=== PATIENT | female | born 1945 | race Caucasian/White ===

== ENCOUNTER 2019-12-28 10:57 | Outpatient (CLI) | payer MEDICARE, MEDICAID, SELFPAY ==
--- NOTE | 2019-12-28 11:09 | XR_ITS ---
WS: [id number] Lumbar spine, 3 views, 12/28/2019 Clinical Data: SACRAL BACK PAIN Comparison: None. Findings: No compression fractures or subluxation is seen. The transverse processes and SI joints are normal. There is a dextrorotoscoliosis. Degenerative disc disease at all disc levels from L1-L2 through L5-S1 is seen. There is a 0.5 cm subluxation of L4 on L5. There are clips in the right upper quadrant from a cholecystectomy. There is a large amount of fecal material throughout the colon. XR/XR lumbar spine 2-3V* [id number] Impression: 1. Dextrorotoscoliosis with multilevel degenerative disc disease. 2. 0.5 cm subluxation of L4 on L5.
== END 2019-12-28 10:58 | disposition home or self-care (01) ==
LOC: RADWPI 11:04
PROVIDERS: Family Provider Internal Medicine; PCP Internal Medicine; Visit Provider Nurse Practitioner Family
DX: M51.36 Other intervertebral disc degeneration, lumbar region (principal); M79.651 Pain in right thigh; M50.90 Cervical disc disorder, unspecified, unspecified cervical region; M25.561 Pain in right knee; Z79.891 Long term (current) use of opiate analgesic
CPT/HCPCS: 72100; 99214

== ENCOUNTER 2020-01-28 12:55 | Outpatient (CLI) | payer MEDICARE, MEDICAID, SELFPAY ==
--- NOTE | 2020-01-28 12:59 | XR_ITS ---
WS: [id number] KNEE RIGHT TECHNIQUE: 3 views of the right knee CLINICAL INFORMATION: WORSENING RIGHT KNEE PAIN COMPARISON: None. FINDINGS: Normal anatomic alignment. No acute fractures. Mild to moderate degenerative narrowing involving the medial lateral joint compartments. Chondrocalcinosis. Hypertrophic changes along the joint line. Hype rtrophic patella. IMPRESSION: Mild to moderate tricompartmental arthritis
== END 2020-01-28 12:56 | disposition home or self-care (01) ==
LOC: RADWPI 12:58
PROVIDERS: Family Provider Internal Medicine; PCP Internal Medicine; Visit Provider Internal Medicine
DX: M17.11 Unilateral primary osteoarthritis, right knee (principal); M25.561 Pain in right knee
CPT/HCPCS: 73562

== ENCOUNTER → 2020-02-20 12:52 | Outpatient (BNVA) | payer MEDICARE, MEDICAID, SELFPAY | PROVIDERS: Family Provider Internal Medicine; PCP Internal Medicine; Visit Provider Anesthesiology | DX: Z76.89 Persons encountering health services in other specified circumstances (principal) ==

== ENCOUNTER 2020-04-22 10:08 | Outpatient (CLI) | payer MEDICARE, MEDICAID, SELFPAY ==
--- NOTE | 2020-04-22 10:17 | MM_ITS ---
WS: [id number] SCREENING DIGITAL MAMMOGRAM WITH CAD HISTORY: SCREENING COMPARISON: 03/08/2018, 01/24/2017 Bilateral CC and MLO views submitted. Computer aided detection analyzed. Breast composition: There are scattered areas of fibroglandular density. Increasing small cluster of calcifications in the anterior LEFT breast near 3:00. There may be a small associated soft tissue mas s. Vascular calcifications bilaterally. LEFT BREAST: Magnification views of suspicious calcification CC and MLO. True ML. MM/[place] [id number] IMPRESSION: BI-RADS: 0-Incomplete: Need additional imaging evaluation FOLLOW UP: Need Additional Imaging
== END 2020-04-22 10:09 | disposition home or self-care (01) ==
PROVIDERS: PCP Internal Medicine; Visit Provider Internal Medicine
DX: Z12.31 Encounter for screening mammogram for malignant neoplasm of breast (principal); R92.1 Mammographic calcification found on diagnostic imaging of breast
CPT/HCPCS: 77067

== ENCOUNTER → 2020-05-30 10:01 | Outpatient (BNVA) | payer MEDICARE, MEDICAID, SELFPAY | PROVIDERS: Family Provider Internal Medicine; PCP Internal Medicine; Visit Provider Anesthesiology | DX: M54.42 Lumbago with sciatica, left side (principal); M51.36 Other intervertebral disc degeneration, lumbar region; M54.9 Dorsalgia, unspecified; M50.90 Cervical disc disorder, unspecified, unspecified cervical region; Z79.891 Long term (current) use of opiate analgesic | CPT/HCPCS: 99214 ==

== ENCOUNTER → 2020-07-23 09:09 | Outpatient (BNVA) | payer MEDICARE, MEDICAID, SELFPAY | PROVIDERS: Family Provider Internal Medicine; PCP Internal Medicine; Visit Provider Anesthesiology | DX: M54.42 Lumbago with sciatica, left side (principal); M43.16 Spondylolisthesis, lumbar region; M51.36 Other intervertebral disc degeneration, lumbar region; M50.90 Cervical disc disorder, unspecified, unspecified cervical region; Z79.891 Long term (current) use of opiate analgesic | CPT/HCPCS: 99213; 99214 ==

== ENCOUNTER 2020-08-26 13:12 | Outpatient (CLI) | payer MEDICARE, MEDICAID, SELFPAY ==
--- NOTE | 2020-08-26 13:34 | MR_ITS ---
WS: [id number] MRI LUMBAR SPINE NONCONTRAST HISTORY: Low back pain. COMPARISON: 03/10/2017 TECHNIQUE: Sagittal and axial multisequence imaging is submitted. Multilevel disc bulging and osteophytosis throughout the mid to lower cervical spine with mild encroa chment upon the thecal sac. Increase in thoracic kyphosis. On one of the localizer images there is in creased soft tissue mass in the LEFT upper abdomen which need further evaluation. Severe rotoscoliosis with convexity to the RIGHT. L4 anterolisthesis is 6.8 mm. 3 mm retrolisthesis o f L2 and L3. There is a very small amount of marrow edema in the adjacent endplates at L4 and L5. No acute fractures. Severe multilevel degenerative disc space narrowing and desiccation. Most significant at L4-5. Conus terminates normally at L1-2 disc level. L1-L2: Diffuse osteophytic ridging and annular disc bulging. Small protrusion in the RIGHT foramen ca using mild narrowing. L2-L3: Diffuse osteophytic ridging and annular disc bulging. Marked ligamentum flavum and facet joint arthritis. Mild central and subarticular recess narrowing. L3-L4: Diffuse asymmetric disc bulging and osteophytic ridging. Facet joint arthropathy encroaches in to the thecal sac, greatest on the LEFT. Moderate central, LEFT subarticular recess and foraminal kelley nosis. L4-L5: Diffuse asymmetric annular disc bulging and osteophytic ridging. Thecal sac is being significa ntly deformed by the rotoscoliosis. Severe central, subarticular recess and foraminal stenosis. Compl ete effacement of fat in the LEFT foramen. L5-S1: Diffuse annular disc bulging and facet and ligamentum flavum hypertrophy. Moderate RIGHT and m ild LEFT foraminal stenosis. MR/MR lumbar spine wo con* [id number] IMPRESSION: 1. Severe RIGHT convex rotoscoliosis of the lumbar spine with moderate progres mleanie of stenosis and degenerative changes since 2017. 2. Severe central, subarticular recess and foraminal stenosis at L4-5. 3. Moderate central, LEFT subarticular recess and foraminal stenosis at L3-4. 4. Moderate RIGHT and mild LEFT foraminal stenosis at L5-S1. 5. Soft tissue mass in the LEFT upper abdomen. May be related to the spleen. R ecommend follow-up CT abdomen and pelvis with IV and oral contrast. 6. Severe degenerative disc disease at L4-5 with significant progression since the prior study. Reactive marrow edema in the vertebral endplates and a small amount of fluid along the disc and in the facet joints.
== END 2020-08-26 13:13 | disposition home or self-care (01) ==
LOC: RADWPI 13:15
PROVIDERS: PCP Internal Medicine; Visit Provider Internal Medicine
DX: M48.061 Spinal stenosis, lumbar region without neurogenic claudication (principal); M48.07 Spinal stenosis, lumbosacral region; R19.02 Left upper quadrant abdominal swelling, mass and lump; M51.36 Other intervertebral disc degeneration, lumbar region
CPT/HCPCS: 72148

== ENCOUNTER 2020-09-04 07:50 | Outpatient (CLI) | payer MEDICARE, MEDICAID, SELFPAY ==
--- NOTE | 2020-09-04 | CT_ITS ---
WS: [id number] CT ABDOMEN PELVIS TECHNIQUE: Noncontrast CT of the abdomen and pelvis with coronal and sagittal reformatted images. CLINICAL INFORMATION: SOFT TISSUE MASS COMPARISON: CT and MRI August 26, 2020 DLP: 944.[address] scans at [facility] use at least one of these dose optimization techniques: automat ed exposure control; mA and/or kV adjustment per patient size (includes targeted exams where dose is matched to clinical indication); or iterative reconstruction. FINDINGS: Normal liver. Cholecystectomy. Lobulated spleen the left upper quadrant with dystrophic calcification corresponds t o the mass described on the lumbar spine MRI. This has a benign appearance. Normal GE junction. Moder ate emphysematous changes in the lung bases. Subsegmental atelectasis right lower lobe. Hazy infiltra keiry in the left greater than right lung base. Noncontrast pancreas appears normal with pancreatic atrophy. Normal caliber abdominal aorta. Aortic c alcification. Malrotation right kidney. Prominent extrarenal pelvises bilaterally. No hydronephrosis. Aortic calcification. Scattered stool in normal caliber colon. No evidence of small or large bowel o bstruction. No free fluid in the pelvis. No periaortic lymphadenopathy. No pelvic lymphadenopathy. Lumbar scoliosis. Grade 1 anterolisthesis L 4 on L5 measuring 7 mm. Disc space narrowing with vacuum disc phenomenon throughout the lumbar spine. Advanced lumbar scoliosis. IMPRESSION: 1. Lobulated partially calcified spleen left upper quadrant corresponds to the mass seen on the MRI. This has a benign appearance. 2. Prior cholecystectomy. 3. Malrotation right kidney. No hydronephrosis in either kidney. 4. Advanced lumbar scoliosis with multilevel degenerative disc disease. 5. Hazy infiltrates in the left greater than right lung base. Recommend correlation for pneumonitis.
[2020-09-04] MEDS: iohexol 300 mg/mL 50 mL Btl PO (09:40)
== END 2020-09-04 07:51 | disposition home or self-care (01) ==
LOC: RADWPI 07:55
PROVIDERS: PCP Internal Medicine; Visit Provider Internal Medicine
DX: M79.9 Soft tissue disorder, unspecified (principal); D73.89 Other diseases of spleen; Z90.49 Acquired absence of other specified parts of digestive tract; Q63.2 Ectopic kidney; M41.86 Other forms of scoliosis, lumbar region; M51.36 Other intervertebral disc degeneration, lumbar region; R91.8 Other nonspecific abnormal finding of lung field
CPT/HCPCS: 74176; Q9967

== ENCOUNTER 2020-09-08 09:41 | Outpatient (CLI) | payer MEDICARE, MEDICAID, SELFPAY ==
--- NOTE | 2020-09-08 09:47 | MM_ITS ---
WS: [id number] LEFT DIGITAL MAMMOGRAM WITH CAD HISTORY: ABNORMAL MAMMOGRAM LT BREAST COMPARISON: 04/22/2020, 03/08/2018 Technique: CC, MLO and ML views. Magnification views LEFT CC and MLO. Breast composition: There are scattered areas of fibroglandular density. Small cluster of calcificat ions is unchanged since 04/22/2020. Probably benign calcifications. As these are new since 03/08/2018 co ntinued follow-up recommended. MM/[place] [id number] IMPRESSION: BI-RADS: 3-Probably Benign FOLLOW UP: 6 Month Follow-up Magnification views of the LEFT breast calcifications recommended in 6 months f or continued follow-up.
--- NOTE | 2020-09-08 10:33 | CT_ITS ---
WS: [id number] LDCT LUNG CANCER SCREENING TECHNIQUE: Noncontrast CT of the chest with coronal and sagittal reformatted images. CLINICAL INFORMATION: INITIAL SCREENING COMPARISON: 4 7,016 DLP: 69.18 mGy.cm DIvol: 1.[address] scans at [facility] use at least one of these dose optimization techniques: automat ed exposure control; mA and/or kV adjustment per patient size (includes targeted exams where dose is matched to clinical indication); or iterative reconstruction. FINDINGS: Sternotomy Mild chronic emphysematous changes. No acute pulmonary infiltrates. 9 mm groundglass opacity right up per lobe is unchanged since February 26, 2016. Subsegmental atelectasis in the lingula and left lower lo be. Small noncalcified nodule right upper lobe laterally measuring 4 mm. A few calcified granulomas. Stab le ectatic ascending thoracic aorta measuring 4.0 cm unchanged. Aortic calcification. Coronary calcif ication. Calcified mediastinal and right hilar lymph nodes. Small fat-containing epigastric/morgagni hernia. CT/CT lung screening [id number] IMPRESSION: LUNG-RADS: 2-Benign Appearance or Behavior FOLLOW UP: 12 Month: Continue annual screening with LDCT
== END 2020-09-08 09:42 | disposition home or self-care (01) ==
LOC: RADSHAW 09:44
PROVIDERS: PCP Internal Medicine; Visit Provider Internal Medicine
DX: R92.8 Other abnormal and inconclusive findings on diagnostic imaging of breast (principal); R92.1 Mammographic calcification found on diagnostic imaging of breast; Z12.2 Encounter for screening for malignant neoplasm of respiratory organs; F17.200 Nicotine dependence, unspecified, uncomplicated
CPT/HCPCS: 77065; G0297

== ENCOUNTER → 2020-09-17 09:12 | Outpatient (BNVA) | payer MEDICARE, MEDICAID, SELFPAY | PROVIDERS: Family Provider Internal Medicine; PCP Internal Medicine; Visit Provider Anesthesiology | DX: M43.16 Spondylolisthesis, lumbar region (principal); M51.36 Other intervertebral disc degeneration, lumbar region; M50.90 Cervical disc disorder, unspecified, unspecified cervical region; M54.9 Dorsalgia, unspecified; Z79.891 Long term (current) use of opiate analgesic | CPT/HCPCS: 99213; 99214 ==

== ENCOUNTER → 2020-11-25 13:48 | Outpatient (BNVA) | payer MEDICARE, MEDICAID, SELFPAY | PROVIDERS: Family Provider Internal Medicine; PCP Internal Medicine; Visit Provider Anesthesiology | DX: M54.42 Lumbago with sciatica, left side (principal); M51.36 Other intervertebral disc degeneration, lumbar region; M43.16 Spondylolisthesis, lumbar region; M54.9 Dorsalgia, unspecified; Z79.891 Long term (current) use of opiate analgesic | CPT/HCPCS: 99213 ==

== ENCOUNTER → 2020-12-02 13:31 | Outpatient (BNVA) | payer MEDICARE, MEDICAID, SELFPAY | PROVIDERS: Family Provider Internal Medicine; PCP Internal Medicine; Visit Provider Internal Medicine Critical Care Medicine | DX: J96.11 Chronic respiratory failure with hypoxia (principal); J96.12 Chronic respiratory failure with hypercapnia | CPT/HCPCS: 87635 ==

== ENCOUNTER → 2021-01-20 13:54 | Outpatient (BNVA) | payer MEDICARE, MEDICAID, SELFPAY | PROVIDERS: Family Provider Nurse Practitioner Family; PCP Internal Medicine; Visit Provider Nurse Practitioner | DX: M43.16 Spondylolisthesis, lumbar region (principal); M51.36 Other intervertebral disc degeneration, lumbar region; M54.9 Dorsalgia, unspecified; M50.90 Cervical disc disorder, unspecified, unspecified cervical region; Z79.891 Long term (current) use of opiate analgesic | CPT/HCPCS: 99213 ==

== ENCOUNTER → 2021-02-17 09:32 | Outpatient (BNVA) | payer MEDICARE, MEDICAID, SELFPAY | PROVIDERS: PCP Internal Medicine; Visit Provider Nurse Practitioner | DX: M79.652 Pain in left thigh (principal); M43.16 Spondylolisthesis, lumbar region; M50.90 Cervical disc disorder, unspecified, unspecified cervical region; M51.36 Other intervertebral disc degeneration, lumbar region; M70.62 Trochanteric bursitis, left hip; Z79.891 Long term (current) use of opiate analgesic; Y93.9 Activity, unspecified | CPT/HCPCS: 99213 ==

== ENCOUNTER 2021-02-23 12:44 | Outpatient (CLI) | payer MEDICARE, MEDICAID, SELFPAY ==
--- NOTE | 2021-02-23 12:53 | XR_ITS ---
WS: [id number] DEXA (DUAL ENERGY X-RAY ABSORPTIOMETRY) Bone mineral density was performed using a Ecrio machine. HISTORY: STATUS, ASYMPTOMATIC POSTMENOPAUSAL COMPARISON: 07/22/2015 Lumbar spine BMD (L1-L4): 1.116 g/cm2 T score: -0.5 Z score: 1.6 Total hip BMD: Left: 0.721 g/cm2. T score: -2.3 Z score: -0.4 Right: 0.670 g/cm2. T score: -2.7 Z score: -0.8 10 year probability of a major osteoporotic fracture is 18%. Compared to the prior study from 07/22/2015. Lumbar spine bone mineral density has decreased by 0.4%. Bilateral hips bone mineral density has decreased by 18.5%. XR/XR DEXA axial skeleton* [id number] IMPRESSION: OSTEOPOROSIS based upon the WHO classification for females. Significant decrease in bone mineral density within the hips since the prior st udy. Increased bone mineral density within the lumbar spine is most likely falsely e levated due to sclerosis.
== END 2021-02-23 12:45 | disposition home or self-care (01) ==
LOC: RADWPI 12:48
PROVIDERS: PCP Internal Medicine; Visit Provider Internal Medicine
DX: Z78.0 Asymptomatic menopausal state (principal); M81.0 Age-related osteoporosis without current pathological fracture
CPT/HCPCS: 77080

== ENCOUNTER → 2021-02-24 13:34 | Outpatient (BNVA) | payer MEDICARE, MEDICAID, SELFPAY | PROVIDERS: PCP Internal Medicine; Referring Provider Internal Medicine; Visit Provider Orthopaedic Surgery | DX: M54.9 Dorsalgia, unspecified (principal) | CPT/HCPCS: 72110 ==

== ENCOUNTER → 2021-03-27 08:39 | Outpatient (BNVA) | payer MEDICARE, MEDICAID, SELFPAY | PROVIDERS: PCP Internal Medicine; Visit Provider Orthopaedic Surgery | DX: Z20.822 Contact with and (suspected) exposure to COVID-19 (principal) | CPT/HCPCS: 87635 ==

== ENCOUNTER 2021-03-30 11:30 | Day surgery (SDC) | payer MEDICARE, MEDICAID, SELFPAY ==
[2021-03-30 11:12] VITALS: BMI 20.2
[2021-03-30 11:40] LABS: Basophils % 0.4 %; Eosinophils # 0.3 10^3/uL (0.0-0.8); Eosinophils % 5.1 %; Hematocrit 41.7 % (37.0-47.0); Hemoglobin 13.1 g/dL (11.5-15.3); Lymphocytes # 1.4 10^3/uL (0.8-4.8); Lymphocytes % 23.9 %; Mean Corpuscular HGB Conc 31.4 g/dL (30.0-36.0); Mean Corpuscular Hemoglobin 32.2 pg (28.0-34.0); Mean Corpuscular Volume 102.5 fL (81-99); Mean Platelet Volume 9.4 fL (7.4-10.4); Monocytes # 0.4 10^3/uL (0.2-0.9); Monocytes % 7.3 %; Neutrophils # 3.56 10^3/uL (1.8-7.7); Neutrophils % 63.1 %; Nucleated Red Blood Cells % 0 %; Platelet Count 163 10^3/cmm (130-400); Red Blood Count 4.07 10^6/uL (4.1-5.3); Red Cell Distribution Width 12.8 % (12.1-15.1); White Blood Count 5.6 10^3/uL (4.0-10.0)
--- NOTE | 2021-03-30 11:45 | P.ANESASSM_ITS ---
Pre-Anesthetic Assessment Pre-Anesthetic Assessment: Height/Weight: Height 1.6 m Weight 51.71 kg Preop Diagnosis: lumbar stenosis Proposed Procedure: Operation Date: 04/01/21 07:00 Proposed Procedures p Lumbar Spine Decompression L4/5 14159 M48.061(Not Applicable) - Santo Small DO Familial anesthetic complications: None Social: Social History: No alcohol and No tobacco Comment: former smoker and EtOH Exam: Pre-Anes Outpt Exam: alert, oriented x 3, clear to auscultation bilaterally and regular rate & rhythm Airway: Cervical ROM: WNL MP: 1 Dentition: Other (top plate) Pulmonary: Pulmonary: COPD (2 L NC prn during activity, steroids within last year) CV/HEM: Comments: S/P AVR approximately 10 years ago GI: GI: GERD Musc/skel: Musc/skel: Lower Back Pain Neuropsych: Neuropsych: Seizure (last one 2 years ago, occurs after stress) Anesthetic Plan: ASA status: 3 Anesthesia: General Risk of > 500 ml blood loss (7ml/kg in children): No PFSH Anesthesia PFSH: Medical History Cervical disc disease Cholecystectomy planned COPD (chronic obstructive pulmonary disease) Lumbar degenerative disc disease Surgical History H/O hernia repair H/O tubal ligation History of heart valve repair History of surgery on arm Family History Other Cancer Dementia Denies family history of Anesthesia complication Bleeding disorder Social History Smoking and tobacco status: former smoker Quit status (tobacco): has quit using tobacco Year quit tobacco: 2009 - 3PPD x 50 Years Second hand smoke exposure: Yes Smoking risk assessment/counseling performed?: No Alcohol intake: never Lives independently: Yes Household members: none Marital status: / Current occupational status: retired History of recent travel: No Current gender identity: Female Data Anesthesia CBC & Chem 7: 03/30/21 11:30 03/30/21 11:30 Other Labs: Laboratory Results - last 48 hr 03/30/21 11:30 WBC 5.6 RBC 4.07 L Hgb 13.1 Hct 41.7 MCV 102.5 H MCH 32.2 MCHC 31.4 RDW 12.8 Plt Count 163 MPV 9.4 Neut % (Auto) 63.1 Lymph % (Auto) 23.9 [place] % (Auto) 7.3 Eos % (Auto) 5.1 Baso % (Auto) 0.4 Neut # (Auto) 3.56 Lymph # (Auto) 1.4 [place] # (Auto) 0.4 Eos # (Auto) 0.3 Baso # (Auto) 0.0 Nucleated RBC % (auto) 0 Nucleated RBCs # 0.0 Cardiac Studies: No Data to Display
[2021-03-30 12:05] LABS: Alanine Aminotransferase 14 U/L (0-33); Albumin Level 4.1 g/dL (3.5-5.2); Alkaline Phosphatase 83 IU/L (35-105); Aspartate Amino Transferase 25 U/L (0-32); Blood Urea Nitrogen 10 mg/dL (8-23); Calcium 8.5 mg/dL (8.5-10.5); Carbon Dioxide 31 mmol/L (22-29); Chloride 101 mmol/L (98-107); Globulin 2.1 g/dL (1.3-4.6); Glucose 127 mg/dL (65-115); Osmolality Calculated 289 mOsm/kg (285-295); Sodium 139 mmol/L (136-145); Total Bilirubin 0.2 mg/dL (0.15-1.2); Total Protein 6.2 g/dL (6.6-8.7)
[2021-04-01 09:57] VITALS: BP 139/107; PULSE 96; RESP 16; TEMP 36.3; O2SAT 96
--- NOTE | 2021-04-01 10:14 | PC.NURSE ---
SURGERY CANCELLED. PATIENT CONSUMED A BOTTLE OF WATER, WITH HER LAST DRINK BEING AT 9:30. PATIENT TO RE-SCHEDULE
--- NOTE | 2021-04-01 12:03 | W.PM.OPSUD ---
Surgery/Procedure H&P Update DATE OF PROCEDURE: April 01, 2021 DATE H&P PERFORMED: 04/01/21 PREOP DIAGNOSIS: lumbar stenosis PLANNED PROCEDURE: Operation Date: 04/01/21 11:30 Proposed Procedures p Lumbar Spine Decompression L4/5 44194 M48.061(Not Applicable) - Santo Small DO
== END 2021-03-30 12:00 | disposition home or self-care (01) ==
LOC: OR 11-22 17:28
PROVIDERS: PCP Internal Medicine; Visit Provider Orthopaedic Surgery
DX: M48.061 Spinal stenosis, lumbar region without neurogenic claudication (principal); Z53.9 Procedure and treatment not carried out, unspecified reason; J44.9 Chronic obstructive pulmonary disease, unspecified; Z99.81 Dependence on supplemental oxygen; Z87.891 Personal history of nicotine dependence
CPT/HCPCS: 36415; 76000; 80048; 80053; 85025

== ENCOUNTER → 2021-04-21 10:24 | Outpatient (BNVA) | payer MEDICARE, MEDICAID, SELFPAY | PROVIDERS: PCP Internal Medicine; Visit Provider Orthopaedic Surgery | DX: Z20.822 Contact with and (suspected) exposure to COVID-19 (principal); Z01.818 Encounter for other preprocedural examination | CPT/HCPCS: 87635 ==

== ENCOUNTER → 2021-04-24 09:24 | Outpatient (BNVA) | payer MEDICARE, MEDICAID, SELFPAY | PROVIDERS: PCP Internal Medicine; Visit Provider Nurse Practitioner | DX: M48.062 Spinal stenosis, lumbar region with neurogenic claudication (principal); M51.36 Other intervertebral disc degeneration, lumbar region; M43.16 Spondylolisthesis, lumbar region; M50.90 Cervical disc disorder, unspecified, unspecified cervical region; Z79.891 Long term (current) use of opiate analgesic; Z87.891 Personal history of nicotine dependence | CPT/HCPCS: 99214 ==

== ENCOUNTER 2021-04-28 05:30 | Day surgery (SDC) | payer MEDICARE, MEDICAID, SELFPAY ==
[2021-04-27 16:01] VITALS: BMI 20.2
[2021-04-28] VITALS (9 sets, daily range): BP systolic 113–152; BP diastolic 64–87; PULSE 66–111; RESP 15–20; TEMP 36.2–36.4; O2SAT 94–100
--- NOTE | 2021-04-28 | SCC_ITS ---
Procedure: left L4/5 Laminectomy with partial facetectomies 47.9 seconds of fluoroscopic guidance, for a cumulative dose of 7.37 mGy, was provided to Dr. Small by the radiology department. C-arm images of the lumbar spine were saved for the patient's permanent record. SERAFIN
--- NOTE | 2021-04-28 | XR_ITS ---
WS: [id number] C-ARM RADIOGRAPHS LUMBAR SPINE; 4 IMAGES HISTORY: decompression COMPARISON: None available. Intraoperative lumbar decompression. XR/XR lumbar spine 2-3V* [id number] IMPRESSION: Imaging during intraoperative lumbar spine decompression.
[2021-04-28] MEDS: sodium chloride 0.9% 1,000 ML 30 ML IV (06:23)
--- NOTE | 2021-04-28 06:43 | W.PM.OPSUD ---
Surgery/Procedure H&P Update DATE OF PROCEDURE: April 28, 2021 DATE H&P PERFORMED: 04/16/21 H&P UPDATE INFORMATION: I have reviewed H&P completed within last 30 days, I have examined patient prior to procedure and No changes to prior documentation PREOP DIAGNOSIS: lumbar stenosis PLANNED PROCEDURE: Operation Date: 04/28/21 07:00 Proposed Procedures p L4/5 decomopression 56451 M48.061(Not Applicable) - Santo Small DO
--- NOTE | 2021-04-28 06:55 | P.ANESUD_ITS ---
Pre-Anesthetic Update Pre-Anesthetic Assessment: Date of Surgery/Procedure: 04/28/21 Preop Jaelyn gnosis: lumbar stenosis Proposed Procedure: Operation Date: 04/28/21 07:00 Proposed Procedures p L4/5 decomopression 72451 M48.061(Not Applicable) - Santo Small, DO Any changes to Pre-Anesthetic Assessment?: No Last Intake: Intake Last Liquid Date 04/27/21 Last Liquid Time 18:30 Last Solid Date 04/27/21 Last Solid Time 18:30 Vitals: Temperature Source Temporal Artery S can 04/28/21 05:59 Pulse Rate 102 H 04/28/21 05:59 Respiratory Rate 18 04/28/21 05:59 Blood Pressure 113/66 04/28/21 05:59 Blood Pressure Ayanna n 81 04/28/21 05:59 Pulse Oximetry 94 04/28/21 05:59 Oxygen Delivery Me thod 04/28/21 05:59 Exam: Pre-Anes Outpt Exam: alert, oriented x 3, clear to auscultation bilaterally and regular rate & rhythm Cardiac Studies: No Data to Display
[2021-04-28] MEDS: clindamycin 600 MG/50 ML PREMIX 100 MG IV (06:58)
--- NOTE | 2021-04-28 08:39 | PM.OP ---
Operative Report Date of procedure: April 28, 2021 Pre-op Diagnosis: lumbar stenosis Post-op diagnosis: same Procedure Done: left L4/5 Laminectomy with partial facetectomies Surgeon: Santo Small Anesthesia: General Estimated blood loss (mL): 5 Condition: stable Disposition: PACU Procedure: left L4/5 Laminectomy with partial facetectomies Patient is brought to the operative suite. After undergoing anesthesia they are placed in the supine position. All areas of impingement are well padded. Patient is then prepped and draped in the normal sterile fashion. A skin incision is made over the L4/5 on the left level. This is confirmed under c-arm guidance. A series of dilators are passed and the tubular retractor is docked on the L 4 lamina. A bovie is used to clear the soft tissue off the lamina and the L 4/5 facet joint. A high speed santino is then used to perform the laminectomy and take down the medial aspect of the L 4/5 facet joint. A kerrison rongeure was then used to take down the remaining lamina and smooth the edge of the laminectomy up to the point where the ligamentum flavum attaches. Attention was then brought to the medial aspect of the facet joint. The remaining medial aspect of the superior and inferior aspect of the facet joint were taken down with the kerrison from the pedicle of L4 to L 5. The facet joint had significant hypertrophy. Attention was then brought to the Ligamentum Flavum. The ligament was taken down from the lamina of L4 to L5 and out medially to the remaining facet joint. The ligament was calcified and scarred to the dura. The dura was then exposed. The dura was in good repair. The L4 nerve was then traced with a curette out the L4/5 foramen and found to be adequately decompressed. The L5 nerve was traced with a curette around the L5 pedicle. The lateral recess was opened with a kerrison helping to further decompress the L5 nerve. Wound is then irrigated copiously with saline and surgiflo is used to stop any bleeding. The tubular retractor is removed and the wound is closed with vicryl and monocryl suture. Glue is then used to protect the wound. A sterile dressing is then placed. Patient was then placed in the supine position and transferred to the PACU in stable condition.
[2021-04-28] MEDS: ipratropium 0.5 mg/2.5 mL Neb INHALATION (08:44)
--- NOTE | 2021-04-28 21:19 | ANE.PACU2 ---
Inpatient post-anesthesia follow up: Airway intact: Yes Vital signs: Temperature 97.3 F Pulse Rate 66 Respiratory Rate 18 Blood Pressure 128/64 Pulse Oximetry 99 Oxygen Delivery Me thod Room Air Oxygen Flow Rate 6 Fraction of Inspir ed Oxygen Hydration adequate: Yes Nausea and vomiting: No Pain level: 2 Mental status: Baseline
== END 2021-04-28 10:48 | disposition home or self-care (01) ==
PROVIDERS: PCP Internal Medicine; Visit Provider Orthopaedic Surgery
PROC: (CPT 63005; principal; 2021-04-28 07:00)
DX: M48.062 Spinal stenosis, lumbar region with neurogenic claudication (principal); J44.9 Chronic obstructive pulmonary disease, unspecified; M19.90 Unspecified osteoarthritis, unspecified site; Z87.891 Personal history of nicotine dependence
CPT/HCPCS: 63047; 72100; 76000; J1100; J2405; J2704; J2710; J3010; J3490; J7030; J7611; J7644

== ENCOUNTER → 2021-06-08 11:20 | Outpatient (BNVA) | payer MEDICARE, MEDICAID, SELFPAY | PROVIDERS: PCP Internal Medicine; Referring Provider Orthopaedic Surgery; Visit Provider Specialist | DX: R52 Pain, unspecified (principal); G56.02 Carpal tunnel syndrome, left upper limb | CPT/HCPCS: 73110 ==

== ENCOUNTER → 2021-06-23 10:05 | Outpatient (BNVA) | payer MEDICARE, MEDICAID, SELFPAY | PROVIDERS: PCP Internal Medicine; Visit Provider Nurse Practitioner | DX: M51.36 Other intervertebral disc degeneration, lumbar region (principal); M48.062 Spinal stenosis, lumbar region with neurogenic claudication; M50.90 Cervical disc disorder, unspecified, unspecified cervical region; G56.02 Carpal tunnel syndrome, left upper limb; M70.62 Trochanteric bursitis, left hip; Y93.9 Activity, unspecified; Z79.891 Long term (current) use of opiate analgesic | CPT/HCPCS: 99213 ==

== ENCOUNTER 2021-07-06 10:26 | Outpatient (CLI) | payer MEDICARE, MEDICAID, SELFPAY ==
--- NOTE | 2021-07-06 10:35 | MM_ITS ---
WS: [id number] BILATERAL DIGITAL SCREENING MAMMOGRAPHY WITH CAD CLINICAL INFORMATION: MAMMOGRAPHIC CALCIFICATION OF BREAST HISTORY: Screening mammogram. No current complaints. COMPARISON: September 08, 2020 and April 22, 20202019 TECHNIQUE: Bilateral CC and MLO views. FINDINGS: The breasts are composed of heterogeneous fibroglandular density tissue, which can limit the detectio n of small underlying mass lesions. Punctate and lucent centered calcifications. Vascular calcificati ons. Coarse clustered calcifications left breast are stable since April 22, 2020. These are probably b enign and recommend additional six-month follow-up. Right breast is unremarkable. MM/[place] [id number] IMPRESSION: BI-RADS: 3-Probably Benign FOLLOW UP: 6 Month Follow-up Recommend additional six-month follow-up LEFT breast diagnostic mammography wit h spot magnification views of the clustered calcifications.
== END 2021-07-06 10:27 | disposition home or self-care (01) ==
PROVIDERS: PCP Internal Medicine; Visit Provider Internal Medicine
DX: R92.1 Mammographic calcification found on diagnostic imaging of breast (principal)
CPT/HCPCS: 77066

== ENCOUNTER 2021-07-29 06:00 | Outpatient (RCR) | payer MEDICARE, MEDICAID, SELFPAY | END 2021-08-20 23:59 | disposition home or self-care (01) | LOC: SPT 06:00 | PROVIDERS: PCP Internal Medicine; Referring Provider Orthopaedic Surgery; Visit Provider Orthopaedic Surgery | DX: M48.061 Spinal stenosis, lumbar region without neurogenic claudication (principal); M54.2 Cervicalgia | CPT/HCPCS: 97110; 97161 ==

== ENCOUNTER → 2021-08-18 09:27 | Outpatient (BNVA) | payer MEDICARE, MEDICAID, SELFPAY | PROVIDERS: PCP Internal Medicine; Visit Provider Nurse Practitioner | DX: M48.062 Spinal stenosis, lumbar region with neurogenic claudication (principal); M51.36 Other intervertebral disc degeneration, lumbar region; M50.90 Cervical disc disorder, unspecified, unspecified cervical region; G56.02 Carpal tunnel syndrome, left upper limb; Z79.891 Long term (current) use of opiate analgesic | CPT/HCPCS: 99213 ==

== ENCOUNTER 2021-08-21 06:00 | Outpatient (RCR) | payer MEDICARE, MEDICAID, SELFPAY | END 2021-09-20 23:59 | disposition home or self-care (01) | LOC: SPT 06:00 | PROVIDERS: PCP Internal Medicine; Referring Provider Orthopaedic Surgery; Visit Provider Orthopaedic Surgery | DX: M48.061 Spinal stenosis, lumbar region without neurogenic claudication (principal) | CPT/HCPCS: 97110; 97164 ==

== ENCOUNTER 2021-09-21 06:00 | Outpatient (RCR) | payer MEDICARE, MEDICAID, SELFPAY | END 2021-10-20 23:59 | disposition home or self-care (01) | LOC: SPT 06:00 | PROVIDERS: PCP Internal Medicine; Referring Provider Orthopaedic Surgery; Visit Provider Orthopaedic Surgery | DX: M54.9 Dorsalgia, unspecified (principal); M48.061 Spinal stenosis, lumbar region without neurogenic claudication | CPT/HCPCS: 97110 ==

== ENCOUNTER → 2021-10-23 08:21 | Outpatient (BNVA) | payer MEDICARE, MEDICAID, SELFPAY | PROVIDERS: PCP Internal Medicine; Visit Provider Anesthesiology | DX: G89.29 Other chronic pain (principal); M51.36 Other intervertebral disc degeneration, lumbar region; M48.062 Spinal stenosis, lumbar region with neurogenic claudication; M25.561 Pain in right knee; M50.90 Cervical disc disorder, unspecified, unspecified cervical region; M25.569 Pain in unspecified knee; Z79.899 Other long term (current) drug therapy; Z79.891 Long term (current) use of opiate analgesic; Z87.891 Personal history of nicotine dependence | CPT/HCPCS: 99214 ==

== ENCOUNTER 2021-10-23 09:10 | Outpatient (CLI) | payer MEDICARE, MEDICAID, SELFPAY ==
--- NOTE | 2021-10-23 09:24 | XR_ITS ---
WS: [id number] Right knee, 3 views, 10/23/2021 Clinical Data: M25.561 - Pain in right knee Comparison: Right knee, 01/28/2020. Findings: No fractures or dislocations are seen. There is medial and lateral joint compartment narrowing. There is cartilage calcification in both compartments. There is spurring of the lateral tibial plateau and lateral femoral condyle. There is spurring of the posterior patella.The soft tissues are normal. XR/XR knee RT 3V* [id number] Impression: Moderate osteoarthritis of the right knee. Kellgren-Sai Classification: grade 3 (moderate): moderate multiple osteoph ytes, definite narrowing of joint space and some sclerosis and possible deformi ty of bone ends
== END 2021-10-23 09:11 | disposition home or self-care (01) ==
PROVIDERS: PCP Internal Medicine; Visit Provider Anesthesiology
DX: M17.11 Unilateral primary osteoarthritis, right knee (principal)
CPT/HCPCS: 73562

== ENCOUNTER → 2021-12-29 13:19 | Outpatient (BNVA) | payer MEDICAID, SELFPAY | PROVIDERS: PCP Internal Medicine; Visit Provider Anesthesiology | DX: G89.29 Other chronic pain (principal); M48.062 Spinal stenosis, lumbar region with neurogenic claudication; M51.36 Other intervertebral disc degeneration, lumbar region; M50.90 Cervical disc disorder, unspecified, unspecified cervical region; Z79.891 Long term (current) use of opiate analgesic | CPT/HCPCS: 99214 ==

== ENCOUNTER 2022-02-08 10:10 | Outpatient (CLI) | payer MEDICARE, MEDICAID, SELFPAY ==
--- NOTE | 2022-02-08 10:21 | MM_ITS ---
WS: [id number] LEFT 3D TOMOSYNTHESIS DIGITAL MAMMOGRAPHY WITH CAD CLINICAL INFORMATION: LT BREAST CALCIFICATION HISTORY: 6 month follow-up LEFT breast calcifications. COMPARISON: June 26, 2021 TECHNIQUE: 4 views of the left breast were obtained. FINDINGS: Scattered fibroglandular densities of the left breast. Again seen are the coarse clustered calcificat ions central LEFT breast. These appear stable since April 22, 2020. Punctate and lucent centered calci fications. Vascular calcifications. Recommend return to annual screening mammography. MM/[place] [id number] IMPRESSION: BI-RADS: 2-Benign FOLLOW UP: See Report Recommend return to annual screening mammography.
== END 2022-02-08 10:11 | disposition home or self-care (01) ==
LOC: RADSHAW 10:19
PROVIDERS: PCP Internal Medicine; Visit Provider Internal Medicine
DX: R92.1 Mammographic calcification found on diagnostic imaging of breast (principal)
CPT/HCPCS: 77061

== ENCOUNTER → 2022-04-12 10:22 | Outpatient (BNVA) | payer MEDICARE, MEDICAID, SELFPAY | PROVIDERS: PCP Internal Medicine; Visit Provider Internal Medicine Critical Care Medicine | DX: J44.9 Chronic obstructive pulmonary disease, unspecified (principal); Z87.891 Personal history of nicotine dependence; J96.12 Chronic respiratory failure with hypercapnia; R91.1 Solitary pulmonary nodule; J96.11 Chronic respiratory failure with hypoxia | CPT/HCPCS: 99214 ==

== ENCOUNTER → 2022-07-15 11:12 | Outpatient (BNVA) | payer MEDICARE, MEDICAID, SELFPAY | PROVIDERS: PCP Internal Medicine; Visit Provider Internal Medicine Critical Care Medicine | DX: J44.9 Chronic obstructive pulmonary disease, unspecified (principal); J96.11 Chronic respiratory failure with hypoxia; J96.12 Chronic respiratory failure with hypercapnia; R91.1 Solitary pulmonary nodule; J31.0 Chronic rhinitis; J32.9 Chronic sinusitis, unspecified; Z87.891 Personal history of nicotine dependence; Z99.81 Dependence on supplemental oxygen | CPT/HCPCS: 99214 ==

== ENCOUNTER 2022-08-25 06:00 | Outpatient (RCR) | payer MEDICARE, SELFPAY | END 2022-09-20 23:59 | disposition home or self-care (01) | LOC: TPT 06:00 | PROVIDERS: PCP Internal Medicine; Visit Provider Internal Medicine | DX: M51.37 Other intervertebral disc degeneration, lumbosacral region (principal) | CPT/HCPCS: 97110; 97162 ==

== ENCOUNTER → 2022-09-16 07:41 | Outpatient (BNVA) | payer MEDICARE, MEDICAID, SELFPAY | PROVIDERS: PCP Internal Medicine; Visit Provider Anesthesiology Pain Medicine | DX: G89.29 Other chronic pain (principal); M54.16 Radiculopathy, lumbar region; M51.36 Other intervertebral disc degeneration, lumbar region; M48.062 Spinal stenosis, lumbar region with neurogenic claudication; M50.90 Cervical disc disorder, unspecified, unspecified cervical region; J44.9 Chronic obstructive pulmonary disease, unspecified; R91.1 Solitary pulmonary nodule | CPT/HCPCS: 99204 ==

== ENCOUNTER → 2022-09-21 13:49 | Outpatient (BNVA) | payer MEDICARE, MEDICAID, SELFPAY | PROVIDERS: PCP Internal Medicine; Referring Provider Internal Medicine; Visit Provider Specialist | DX: G25.2 Other specified forms of tremor (principal); M48.02 Spinal stenosis, cervical region; M62.838 Other muscle spasm; G40.309 Generalized idiopathic epilepsy and epileptic syndromes, not intractable, without status epilepticus; M51.36 Other intervertebral disc degeneration, lumbar region | CPT/HCPCS: 99204 ==

== ENCOUNTER → 2023-01-17 09:06 | Outpatient (BNVA) | payer MEDICARE, MEDICAID, SELFPAY | PROVIDERS: PCP Internal Medicine; Visit Provider Internal Medicine Pulmonary Disease | DX: J44.9 Chronic obstructive pulmonary disease, unspecified (principal); R91.1 Solitary pulmonary nodule; Z87.891 Personal history of nicotine dependence; J31.0 Chronic rhinitis; J32.9 Chronic sinusitis, unspecified; J96.11 Chronic respiratory failure with hypoxia; J96.12 Chronic respiratory failure with hypercapnia; M25.561 Pain in right knee | CPT/HCPCS: 99214 ==

== ENCOUNTER 2023-01-31 10:43 | Outpatient (CLI) | payer MEDICARE, MEDICAID, SELFPAY ==
--- NOTE | 2023-01-31 10:51 | CT_ITS ---
WS: [id number] CT CHEST WITH INTRAVENOUS CONTRAST HISTORY: Cough for one month, COPD. TECHNIQUE: Contiguous 5 mm axial imaging performed on the thorax. Coronal and sagittal reformats are submitted. All CT scans at [facility] use at least one of these dose optimization techniques: automated exposure control; mA and/or kV adjustment per patient size (includes targeted exams where dose is matched to clinical indication); or iterative reconstruction. CONTRAST: Omnipaque 350; 100 mL IV. DLP: 205.13 mGy.cm COMPARISON: 09/08/2020 Lungs and central airway: Marked pulmonary hyperexpansion from emphysema. There are no new or increas ing size of any of pulmonary micronodule seen on the prior study. No pneumonia. Pleura: Normal. No pleural effusion. Heart and pericardium: Normal size heart with no pericardial effusion. Prior aortic valve replacement . Prior CABG. Mediastinum and warner: No mediastinum or hilar adenopathy. Vessels: Moderate atherosclerotic plaque within the thoracic aorta. No aneurysm. Normal size pulmonar y artery. Chest wall and lower neck: No soft tissue masses. Upper abdomen: Small hiatal hernia. Prior cholecystectomy. Splenic calcifications along the surface p robably from prior injury or hematoma. No adrenal mass. Osseous structures: Osteopenia. CT/CT chest w con* [id number] IMPRESSION: 1. Severe emphysema. No mass or pneumonia. 2. Prior CABG. 3. Sensitive atherosclerosis aorta with no aneurysm. 4. Prior cholecystectomy. 5. No adenopathy.
[2023-01-31 11:15] LABS: Blood Urea Nitrogen 14 mg/dL (8-23)
[2023-01-31] MEDS: iohexol 350 mg/mL 500 mL Btl (per mL) IV (11:23)
== END 2023-01-31 10:44 | disposition home or self-care (01) ==
PROVIDERS: PCP Internal Medicine; Visit Provider Internal Medicine
DX: R05.9 Cough, unspecified (principal); J43.9 Emphysema, unspecified; Z95.1 Presence of aortocoronary bypass graft; I70.0 Atherosclerosis of aorta; Z90.49 Acquired absence of other specified parts of digestive tract
CPT/HCPCS: 71260; 82565; 84520; Q9967

== ENCOUNTER → 2023-03-18 10:30 | Outpatient (BNVA) | payer MEDICARE, MEDICAID, SELFPAY | PROVIDERS: PCP Internal Medicine; Visit Provider Internal Medicine Pulmonary Disease | DX: J44.9 Chronic obstructive pulmonary disease, unspecified (principal); R91.1 Solitary pulmonary nodule; J31.0 Chronic rhinitis; J32.9 Chronic sinusitis, unspecified; J96.11 Chronic respiratory failure with hypoxia; J96.12 Chronic respiratory failure with hypercapnia; Z87.891 Personal history of nicotine dependence; Z99.81 Dependence on supplemental oxygen | CPT/HCPCS: 99214 ==

== ENCOUNTER 2023-09-05 08:56 | Outpatient (CLI) | payer MEDICARE, MEDICAID, SELFPAY ==
--- NOTE | 2023-09-05 09:03 | CT_ITS ---
WS: [id number] LDCT LUNG CANCER SCREENING TECHNIQUE: Noncontrast CT of the chest with coronal and sagittal reformatted images. CLINICAL INFORMATION: HX OF TOBACCO USE COMPARISON: None. DLP: 48.81 mGy.cm DIvol: Mean CTDIvol: 0.70 (mGy) All CT scans at [facility] use at least one of these dose optimization techniques: automat ed exposure control; mA and/or kV adjustment per patient size (includes targeted exams where dose is matched to clinical indication); or iterative reconstruction. FINDINGS: Chronic emphysematous changes. Bronchiectasis in the LEFT greater than RIGHT lower lobes. Scattered a reas of parenchymal fibrosis. Small subpleural nodules and clustered micronodules in the RIGHT upper lobe. A few calcified granulomas. No new suspicious pulmonary opacities. Stable ectatic ascending thoracic aorta measuring 3.6 cm. Aortic calcification. Pulmonary calcificati on. Postoperative changes LEFT shoulder with beam-hardening artifact. Calcified mediastinal lymph nod es. No mediastinal or hilar lymphadenopathy. Cholecystectomy clips. Dystrophic calcifications spleen partially visualized. Mild thoracic curve and kyphosis. Small fat-containing epigastric hernia unchanged. IMPRESSION: CT/CT lung screening [id number] LUNG-RADS: 2-Benign Appearance or Behavior FOLLOW UP: 12 Month: Continue annual screening with LDCT
== END 2023-09-05 08:57 | disposition home or self-care (01) ==
PROVIDERS: PCP Internal Medicine; Visit Provider Nurse Practitioner Family
DX: Z12.2 Encounter for screening for malignant neoplasm of respiratory organs (principal); Z87.891 Personal history of nicotine dependence
CPT/HCPCS: 71271

== ENCOUNTER → 2023-09-07 09:15 | Outpatient (BNVA) | payer MEDICARE, MEDICAID, SELFPAY | PROVIDERS: PCP Internal Medicine; Visit Provider Anesthesiology Pain Medicine | DX: G89.29 Other chronic pain; M48.062 Spinal stenosis, lumbar region with neurogenic claudication; M50.90 Cervical disc disorder, unspecified, unspecified cervical region; M51.36 Other intervertebral disc degeneration, lumbar region | CPT/HCPCS: 99215 ==

== ENCOUNTER → 2023-10-03 10:37 | Outpatient (BNVA) | payer MEDICARE, MEDICAID, SELFPAY | PROVIDERS: PCP Internal Medicine; Visit Provider Anesthesiology Pain Medicine | DX: M17.11 Unilateral primary osteoarthritis, right knee (principal); G89.29 Other chronic pain; M48.062 Spinal stenosis, lumbar region with neurogenic claudication; M50.90 Cervical disc disorder, unspecified, unspecified cervical region; M51.36 Other intervertebral disc degeneration, lumbar region | CPT/HCPCS: 20610; 99214; J1030; J3490 ==

== ENCOUNTER → 2023-10-19 10:51 | Outpatient (BNVA) | payer MEDICARE, MEDICAID, SELFPAY | PROVIDERS: PCP Internal Medicine; Visit Provider Anesthesiology Pain Medicine | DX: M79.18 Myalgia, other site (principal); M54.12 Radiculopathy, cervical region; G89.29 Other chronic pain; M48.062 Spinal stenosis, lumbar region with neurogenic claudication; M50.90 Cervical disc disorder, unspecified, unspecified cervical region; M51.36 Other intervertebral disc degeneration, lumbar region | CPT/HCPCS: 20553; 99214; J1030; J3490 ==

== ENCOUNTER → 2023-11-01 09:40 | Outpatient (BNVA) | payer MEDICARE, MEDICAID, SELFPAY | PROVIDERS: PCP Internal Medicine; Visit Provider Podiatrist Foot & Ankle Surgery | DX: M20.41 Other hammer toe(s) (acquired), right foot; M20.42 Other hammer toe(s) (acquired), left foot; M20.12 Hallux valgus (acquired), left foot | CPT/HCPCS: 73630; 99203 ==

== ENCOUNTER → 2023-11-07 10:02 | Outpatient (BNVA) | payer MEDICARE, MEDICAID, SELFPAY | PROVIDERS: PCP Internal Medicine; Visit Provider Anesthesiology Pain Medicine | DX: M79.18 Myalgia, other site (principal); G89.29 Other chronic pain; M48.062 Spinal stenosis, lumbar region with neurogenic claudication; M50.90 Cervical disc disorder, unspecified, unspecified cervical region; M51.36 Other intervertebral disc degeneration, lumbar region; M70.62 Trochanteric bursitis, left hip; Y93.9 Activity, unspecified | CPT/HCPCS: 20553; 99214; J1030; J3490 ==

== ENCOUNTER → 2023-12-07 13:18 | Outpatient (BNVA) | payer MEDICARE, MEDICAID, SELFPAY | PROVIDERS: PCP Internal Medicine; Visit Provider Anesthesiology Pain Medicine | DX: G89.29 Other chronic pain; M48.062 Spinal stenosis, lumbar region with neurogenic claudication; M50.90 Cervical disc disorder, unspecified, unspecified cervical region; M51.36 Other intervertebral disc degeneration, lumbar region; M70.62 Trochanteric bursitis, left hip; Y93.9 Activity, unspecified | CPT/HCPCS: 20610; 99214; J1030; J3490 ==

== ENCOUNTER → 2023-12-19 10:08 | Outpatient (BNVA) | payer OTHER, MEDICAID, SELFPAY | PROVIDERS: PCP Internal Medicine; Visit Provider Anesthesiology Pain Medicine | DX: M16.0 Bilateral primary osteoarthritis of hip (principal) | CPT/HCPCS: 73521 ==

== ENCOUNTER 2024-12-20 13:29 | Emergency (ER) | payer MEDICARE, MEDICAID, SELFPAY ==
--- NOTE | 2024-12-20 13:36 | ECG_ITS ---
[facility] Pat Name: Nickie Veliz Department: Room: Gender: Female [employer]: : 1945 Requested By: Jami Alejo Order Number: [id number] Marco MD: Azeem Wills M.D. Measurements Intervals [place] Rate: 78 P: 70 PA: 143 QRS: 58 QRSD: 97 T: 93 QT: 369 QTc: 422 Interpretive Statements SINUS RHYTHM ST DEVIATION AND MODERATE T-WAVE ABNORMALITY, CONSIDER ANTEROLATERAL ISCHEMIA [-0.1+ mV T-WAVE IN V3-V6] Compared to ECG 06/26/2018 14:09:56 Possible ischemia now present T-wave abnormality still present Electronically Signed On 12-22-2024 13:22:36 [employer] MACHINE OPERATOR by Azeme Wills M.D. [email or web address]
[2024-12-20 13:42] VITALS: BP 156/68; PULSE 82; RESP 18; TEMP 36.7; O2SAT 93
--- NOTE | 2024-12-20 14:12 | ED_ITS ---
HPI - Seizure 2 General: Chief Complaint: Seizure Stated Complaint: possible seizure Time Seen by Provider: 12/20/24 13:34 History of Present Illness: HPI Narrative: 79-year-old female with a history of abs ence seizure's who is currently taking medication for this who presents to the emergency room by ambulance after having a brief absence seizure. She says it has been sometime she has had 1 and so they freaked out at the [facility] and made her come to the emergency room. She says she feels fine. No recent illness. No fevers. No cough. No abdominal pain. No nausea or vomiting. No altered mental status. She is completely alert now. Related Data Home Medications Medication Instructions Recorded Confirmed atorvastatin 20 mg tablet 20 mg PO DAILY 12/28/19 12/20/24 esomeprazole magnesium 40 mg 40 mg PO DAILY 12/28/19 12/20/24 capsule,delayed release (Nexium) phenytoin sodium extended 100 mg 300 mg PO BEDTIME 12/28/19 12/20/24 capsule (Dilantin Extended) trazodone 150 mg tablet 150 mg PO .BEDTIME PRN Insomnia 12/28/19 12/20/24 alendronate 70 mg tablet 70 mg PO Q7D 06/23/21 12/20/24 loratadine 10 mg tablet (Allergy 10 mg PO DAILY 06/23/21 12/20/24 Relief (loratadine)) sertraline 50 mg tablet 50 mg PO DAILY 06/23/21 12/20/24 roflumilast 500 mcg tablet 500 mcg PO DAILY 09/16/22 12/20/24 (Daliresp) cyclobenzaprine 5 mg tablet 5 mg PO TID 12/20/24 12/20/24 fluticasone propionate 50 2 spray intranasal BID 12/20/24 12/20/24 mcg/actuation nasal spray,suspension meloxicam 7.5 mg tablet 7.5 mg PO BID 12/20/24 12/20/24 Previous Rx's Medication Instructions Recorded albuterol sulfate 90 mcg/actuation 2 puff inhalation Q6H PRN 11/29/23 aerosol inhaler shortness of breath or wheezing #8.5 grams fluticasone fur. 100 mcg-umeclid 1 inh inhalation DAILY #60 ea 03/19/24 62.5 mcg-vilant 25 mcg inhalat.powder (Trelegy Ellipta) Allergies Allergy/AdvReac Type Severity Reaction Status Date / Time levofloxacin [From Levaquin] Allergy Mild Unknown Verified 12/07/23 14:05 codeine AdvReac Unknown UNKNOWN Verified 12/07/23 14:05 Penicillins AdvReac Unknown UNKNOWN Verified 12/07/23 14:05 Review of Systems 2 Narrative: Constitutional symptoms: Negative except as documented in HPI. Skin symptoms: Negative except as documented in HPI. Eye symptoms: Negative except as documented in HPI. ENMT symptoms: Negative except as documented in HPI. Respiratory symptoms: Negative except as documented in HPI. Cardiovascular symptoms: Negative except as documented in HPI. Gastrointestinal symptoms: Negative except as documented in HPI. Genitourinary symptoms: Negative except as documented in HPI. Musculoskeletal symptoms: Negative except as documented in HPI. Neurologic symptoms: Negative except as documented in HPI. Psychiatric symptoms: Negative except as documented in HPI. Endocrine symptoms: Negative except as documented in HPI. PFSH ED 2 PFSH: Medical History Cholecystectomy planned COPD (chronic obstructive pulmonary disease) Cervical disc disease Lumbar degenerative disc disease Surgical History History of surgery on arm History of heart valve repair H/O tubal ligation H/O hernia repair Family History Other Cancer Dementia Denies family history of Anesthesia complication Bleeding disorder Social History Smoking and tobacco/nicotine status: former use of tobacco/nicotine Quit status (tobacco/nicotine): has quit using Year quit tobacco: 2009 Former quit date comment: 3PPD x 50 Years Second hand smoke exposure: No Alcohol intake: former Substance/Drug Use: never Lives independently: Yes Household members: none Marital status: / Current occupational status: retired Do you think of yourself as: Straight/Heterosexual Current gender identity: Female Physical Exam 2 Narrative: EXAM NARRATIVE: General: Alert, no acute distress. Skin: Warm, dry. Head: Normocephalic, atraumatic. Neck: Supple, trachea midline. Eye: Extraocular movements are intact. Ears, nose, mouth and throat: mucosa moist. Cardiovascular: Regular, Normal peripheral perfusion. Respiratory: Lungs are clear to auscultation, respirations are non-labored, breath sounds are equal, Symmetrical chest wall expansion. Gastrointestinal: Soft, Nontender, Non distended Musculoskeletal: Normal ROM, no deformity. Neurological: Alert and oriented, No focal neurological deficit observed. Psychiatric: Cooperative, appropriate mood & affect. Course 2 Vital Signs: Vital signs: Vital Signs Temperature 98.1 F 12/20/24 13:42 Pulse Rate 82 12/20/24 13:42 Respiratory Rate 18 12/20/24 13:42 Blood Pressure 156/68 12/20/24 13:42 Pulse Oximetry 93 12/20/24 13:42 Oxygen Delivery Me thod Room Air 12/20/24 13:42 MDM - Seizure MDM Narrative Medical decision making narrative: Medical decision making: Differential diagnosis for this patient with a complaint of seizure like activity would include but not be limited to, and based on the above HPI, review of systems and physical exam: seizure, DT's, alcohol withdrawal, brain malignancy, pseudo-seizure, syncope. Orders placed to evaluate differential diagnosis based on the above differential, HPI and physical exam Lab Review: Laboratory results were reviewed and interpreted by myself the emergency room physician Basic lab work was done. No renal failure. No urinary tract infection. No leukocytosis. I reviewed the patient's medical record. Reexamination: Patient remained stable. No increased work of breathing. No altered mental status. No focal motor deficits. Assessment and plan: Absence seizure - Discharged home - Discussed plan with patient. Answered any questions. - Evaluation and treatment of this problem were appropriate in the emergency setting. Lab Data 12/20/24 13:59 12/20/24 13:59 Labs: Laboratory Results WBC 5.14 10^3/uL (3.29-11.43) 12/20/24 13:59 RBC 3.86 10^6/uL (3.85-5.65) 12/20/24 13:59 Hgb 12.30 g/dL (11.27-16.99) 12/20/24 13:59 Hct 38.3 % (36-47) 12/20/24 13:59 MCV 99.2 fl (85-98) H 12/20/24 13:59 MCH 31.9 pg (27-33) 12/20/24 13:59 MCHC 32.1 g/dL (30-55) 12/20/24 13:59 RDW 13.2 % (12.1-15.1) 12/20/24 13:59 Plt Count 175 10^3/cmm (157-399) 12/20/24 13:59 MPV 9.7 fL (7.4-10.4) 12/20/24 13:59 Neut % (Auto) 72.6 % 12/20/24 13:59 Lymph % (Auto) 17.1 % 12/20/24 13:59 [place] % (Auto) 7.4 % 12/20/24 13:59 Eos % (Auto) 2.1 % 12/20/24 13:59 Baso % (Auto) 0.6 % 12/20/24 13:59 Neut # (Auto) 3.73 10^3/uL (1.8-7.7) 12/20/24 13:59 Lymph # (Auto) 0.9 10^3/uL (0.8-4.8) 12/20/24 13:59 [place] # (Auto) 0.4 10^3/uL (0.2-0.9) 12/20/24 13:59 Eos # (Auto) 0.1 10^3/uL (0.0-0.8) 12/20/24 13:59 Baso # (Auto) 0.0 10^3/uL (0.0-0.1) 12/20/24 13:59 Nucleated RBC % (auto) 0 % 12/20/24 13:59 Nucleated RBCs # 0.0 /100WBC 12/20/24 13:59 Sodium 139 mmol/L (136-145) 12/20/24 13:59 Potassium 3.9 mmol/L (3.5-5.1) 12/20/24 13:59 Chloride 103 mmol/L (98-107) 12/20/24 13:59 Carbon Dioxide 28 mmol/L (22-29) 12/20/24 13:59 Anion Gap 11.9 (5-19) 12/20/24 13:59 BUN 17 mg/dL (8-23) 12/20/24 13:59 Creatinine 0.8 mg/dL (0.5-0.9) 12/20/24 13:59 GFR Calculation Not Reportable 12/20/24 13:59 Glucose 132 mg/dL (65-115) H 12/20/24 13:59 Calculated Osmolality 291 mOsm/kg (285-295) 12/20/24 13:59 Calcium 8.9 mg/dL (8.5-10.5) 12/20/24 13:59 Total Bilirubin 0.2 mg/dL (0.15-1.2) 12/20/24 13:59 AST 21 U/L (0-32) 12/20/24 13:59 ALT 15 U/L (0-33) 12/20/24 13:59 Alkaline Phosphatase 76 U/L (35-105) 12/20/24 13:59 Total Protein 6.1 g/dL (6.6-8.7) L 12/20/24 13:59 Albumin 3.9 g/dL (3.5-5.2) 12/20/24 13:59 Globulin 2.2 g/dL (1.3-4.6) 12/20/24 13:59 Urine Color Yellow (Yellow) 12/20/24 14:05 Urine Appearance Clear (CLEAR) 12/20/24 14:05 Urine pH 5.5 (5-7) 12/20/24 14:05 Ur Specific [place] 1.015 (1.005-1.030) 12/20/24 14:05 Urine Protein Negative (Negative) 12/20/24 14:05 Urine Glucose (UA) Negative (Normal) 12/20/24 14:05 Urine Ketones Negative (Negative) 12/20/24 14:05 Urine Blood Non-haemolysed trace (Negative) 12/20/24 14:05 Urine Nitrate Negative (Negative) 12/20/24 14:05 Urine Bilirubin Negative (Negative) 12/20/24 14:05 Urine Urobilinogen 0.2 mg/dL (Negative) 12/20/24 14:05 Ur Leukocyte Esterase Negative (Negative) 12/20/24 14:05 Urine RBC 6-10 /hpf (0-2) 12/20/24 14:05 Urine WBC 0-5 /hpf (0-5) 12/20/24 14:05 Ur Squamous Epith Cells 0-5 /hpf (0-5) 12/20/24 14:05 Amorphous Sediment Not Reportable 12/20/24 14:05 Urine Bacteria None seen /hpf (NONE) 12/20/24 14:05 Hyaline Casts 0-4 /lpf H 12/20/24 14:05 No radiology studies performed this visit Discharge Plan Discharge Patient Disposition: Home Clinical Impression: Absence seizure Condition: Stable Prescriptions: No Action trazodone 150 mg tablet 150 mg PO .BEDTIME PRN (Reason: Insomnia) phenytoin sodium extended [Dilantin Extended] 100 mg capsule 300 mg PO BEDTIME esomeprazole magnesium [Nexium] 40 mg capsule,delayed release(DR/EC) 40 mg PO DAILY atorvastatin 20 mg tablet 20 mg PO DAILY loratadine [Allergy Relief (loratadine)] 10 mg tablet 10 mg PO DAILY sertraline 50 mg tablet 50 mg PO DAILY alendronate 70 mg tablet 70 mg PO Q7D Daliresp 500 mcg tablet 500 mcg PO DAILY albuterol sulfate 90 mcg/actuation HFA aerosol inhaler 2 puff inhalation Q6H PRN (Reason: shortness of breath or wheezing) Qty: 8.5 6RF Trelegy Ellipta 100-62.5-25 mcg blister with device 1 inh inhalation DAILY Qty: 60 5RF meloxicam 7.5 mg tablet 7.5 mg PO BID fluticasone propionate 50 mcg/actuation spray,suspension 2 spray INTRANASAL BID cyclobenzaprine 5 mg tablet 5 mg PO TID Discharge Orders: Discharge ED (Routine); Ordered 12/20/24 Ordered By: Jami Roca Referrals: Samira Seaman MD [Primary Care Provider] - (Keep your scheduled appointment for next Tuesday with your primary.) Discharge Diet: Usual diet Discharge Activity: Increase activity as tolerated Patient Instructions: Opioid Safety, Pain Management, Absence Seizure Activity Restrictions/Additional Instructions: Please follow with your primary to discuss if medication changes need to be made after the seizure. Often a single seizure does not warrant medication changes. Thank you for choosing [facility] for your healthcare needs today. Please realize this is an emergency room and that we are providing you with a medical screening exam and this may not be complete and all inclusive of all the testing and or work up that you may need to determine your ailment or severity of your illness. You have been screened and evaluated and felt safe for discharge. Health conditions do change or evolve sometimes and as such it is important that you follow up with your Primary Doctor to be re checked, 3-5 days is a general good time frame for follow up. You are always welcome to return to the ED for re assessment if your symptoms are worsening or you have new concerns Coding Level of Care Code ED [employer] Associate for [facility]
[2024-12-20 14:15] LABS: Bilirubin Urine Negative (Negative); Blood Urine Non-haemolysed trace (Negative); Glucose Urine UA Negative (Normal); Ketones Urine Negative (Negative); Leukocyte Esterase Urine Negative (Negative); Nitrate Urine Negative (Negative); Protein Urine Negative (Negative); Specific Gravity, Urine 1.015 (1.005-1.030); Urine Appearance Clear (CLEAR); Urine Color Yellow (Yellow); Urobilinogen Urine 0.2 mg/dL (Negative); pH Urine 5.5 (5-7)
[2024-12-20 14:18] LABS: Bacteria Urine None Seen /hpf; Hyaline Casts Urine 0-4 /lpf; Squamous Epithelial Cell Urine 0-5 /hpf (0-5); WBC Urine 0-5 /hpf (0-5)
[2024-12-20 14:24] LABS: Basophils % 0.6 %; Eosinophils # 0.1 10^3/uL (0.0-0.8); Eosinophils % 2.1 %; Hematocrit 38.3 % (36-47); Lymphocytes # 0.9 10^3/uL (0.8-4.8); Lymphocytes % 17.1 %; Mean Corpuscular HGB Conc 32.1 g/dL (30-55); Mean Corpuscular Hemoglobin 31.9 pg (27-33); Mean Corpuscular Volume 99.2 fl (85-98); Mean Platelet Volume 9.7 fL (7.4-10.4); Monocytes # 0.4 10^3/uL (0.2-0.9); Monocytes % 7.4 %; Neutrophils # 3.73 10^3/uL (1.8-7.7); Neutrophils % 72.6 %; Nucleated Red Blood Cells % 0 %; Platelet Count 175 10^3/cmm (157-399); Red Blood Count 3.86 10^6/uL (3.85-5.65); Red Cell Distribution Width 13.2 % (12.1-15.1); White Blood Count 5.14 10^3/uL (3.29-11.43)
[2024-12-20 14:41] LABS: Alanine Aminotransferase 15 U/L (0-33); Albumin Level 3.9 g/dL (3.5-5.2); Alkaline Phosphatase 76 U/L (35-105); Anion Gap 11.9 (5-19); Aspartate Amino Transferase 21 U/L (0-32); Blood Urea Nitrogen 17 mg/dL (8-23); Calcium 8.9 mg/dL (8.5-10.5); Carbon Dioxide 28 mmol/L (22-29); Chloride 103 mmol/L (98-107); Globulin 2.2 g/dL (1.3-4.6); Glucose 132 mg/dL (65-115); Osmolality Calculated 291 mOsm/kg (285-295); Potassium 3.9 mmol/L (3.5-5.1); Sodium 139 mmol/L (136-145); Total Bilirubin 0.2 mg/dL (0.15-1.2); Total Protein 6.1 g/dL (6.6-8.7)
[2024-12-20 14:44] VITALS: BP 141/78; PULSE 74; O2SAT 93
[2024-12-20 15:17] VITALS: BP 110/56; PULSE 71; O2SAT 94
== END 2024-12-20 15:18 | disposition home or self-care (01) ==
PROVIDERS: Emergency Provider Emergency Medicine; PCP Internal Medicine
DX: G40.A09 Absence epileptic syndrome, not intractable, without status epilepticus (principal); Z87.891 Personal history of nicotine dependence; J44.9 Chronic obstructive pulmonary disease, unspecified
CPT/HCPCS: 36415; 80053; 81001; 85025; 93005; 99284

== ENCOUNTER → 2025-02-18 09:04 | Outpatient (BNVA) | payer MEDICARE, MEDICAID, SELFPAY | PROVIDERS: PCP Internal Medicine; Visit Provider Anesthesiology Pain Medicine | DX: M70.72 Other bursitis of hip, left hip (principal); M17.11 Unilateral primary osteoarthritis, right knee; M54.9 Dorsalgia, unspecified; G89.29 Other chronic pain; M48.062 Spinal stenosis, lumbar region with neurogenic claudication; M50.90 Cervical disc disorder, unspecified, unspecified cervical region; M70.62 Trochanteric bursitis, left hip | CPT/HCPCS: 20610; 99214; J1010; J3490 ==

== ENCOUNTER → 2025-07-09 14:13 | Outpatient (BNVA) | payer MEDICARE, MEDICAID, SELFPAY | PROVIDERS: PCP Internal Medicine; Visit Provider Nurse Practitioner Family | DX: M54.2 Cervicalgia (principal); M54.9 Dorsalgia, unspecified; G89.29 Other chronic pain; M48.062 Spinal stenosis, lumbar region with neurogenic claudication; M51.369 Other intervertebral disc degeneration, lumbar region without mention of lumbar back pain or lower extremity pain; M70.62 Trochanteric bursitis, left hip; M25.569 Pain in unspecified knee; F17.200 Nicotine dependence, unspecified, uncomplicated | CPT/HCPCS: 99215 ==

== ENCOUNTER → 2025-07-15 14:22 | Outpatient (BNVA) | payer MEDICARE, MEDICAID, SELFPAY | PROVIDERS: PCP Internal Medicine; Visit Provider Nurse Practitioner Family | DX: M17.0 Bilateral primary osteoarthritis of knee (principal); M70.62 Trochanteric bursitis, left hip; G89.29 Other chronic pain; M54.2 Cervicalgia; M54.9 Dorsalgia, unspecified; M48.062 Spinal stenosis, lumbar region with neurogenic claudication; M51.369 Other intervertebral disc degeneration, lumbar region without mention of lumbar back pain or lower extremity pain | CPT/HCPCS: 20610; 99214; J1010; J3490 ==

== ENCOUNTER → 2025-07-29 13:26 | Outpatient (BNVA) | payer MEDICARE, MEDICAID, SELFPAY | PROVIDERS: PCP Internal Medicine; Visit Provider Nurse Practitioner Family | DX: M70.62 Trochanteric bursitis, left hip (principal); M25.561 Pain in right knee; M25.562 Pain in left knee; G89.29 Other chronic pain; M54.2 Cervicalgia; M54.9 Dorsalgia, unspecified; M51.369 Other intervertebral disc degeneration, lumbar region without mention of lumbar back pain or lower extremity pain | CPT/HCPCS: 20610; 99214; J1010; J3490 ==

== ENCOUNTER → 2025-09-02 14:08 | Outpatient (BNVA) | payer MEDICARE, MEDICAID, SELFPAY | PROVIDERS: PCP Internal Medicine; Visit Provider Nurse Practitioner Family | DX: M25.551 Pain in right hip (principal); M25.561 Pain in right knee; M25.562 Pain in left knee; G89.29 Other chronic pain; M54.2 Cervicalgia; M51.369 Other intervertebral disc degeneration, lumbar region without mention of lumbar back pain or lower extremity pain | CPT/HCPCS: 99214 ==

== ENCOUNTER → 2025-09-18 11:04 | Outpatient (BNVA) | payer MEDICARE, MEDICAID, SELFPAY | PROVIDERS: PCP Internal Medicine; Visit Provider Nurse Practitioner Family | DX: M70.61 Trochanteric bursitis, right hip (principal); M51.369 Other intervertebral disc degeneration, lumbar region without mention of lumbar back pain or lower extremity pain; M25.561 Pain in right knee; M25.562 Pain in left knee; M54.2 Cervicalgia; G89.29 Other chronic pain | CPT/HCPCS: 20610; 99214; J1010; J3490 ==

== ENCOUNTER → 2025-10-14 10:13 | Outpatient (BNVA) | payer MEDICARE, MEDICAID, SELFPAY | PROVIDERS: PCP Internal Medicine; Visit Provider Nurse Practitioner Family | DX: M25.561 Pain in right knee (principal); M25.562 Pain in left knee; M51.369 Other intervertebral disc degeneration, lumbar region without mention of lumbar back pain or lower extremity pain; M54.2 Cervicalgia; F17.200 Nicotine dependence, unspecified, uncomplicated | CPT/HCPCS: 20610; 99214; J1010; J3490 ==

== ENCOUNTER → 2025-10-28 10:15 | Outpatient (BNVA) | payer MEDICARE, MEDICAID, SELFPAY | PROVIDERS: PCP Internal Medicine; Visit Provider Nurse Practitioner Family | DX: M19.019 Primary osteoarthritis, unspecified shoulder (principal); M70.62 Trochanteric bursitis, left hip; M25.561 Pain in right knee; M25.562 Pain in left knee; G89.29 Other chronic pain; M51.369 Other intervertebral disc degeneration, lumbar region without mention of lumbar back pain or lower extremity pain; J32.9 Chronic sinusitis, unspecified | CPT/HCPCS: 20610; 99214; J1010; J3490 ==